=== PATIENT | female | born 1950 | race Caucasian/White ===

== ENCOUNTER 2018-06-07 08:21 | Day surgery (SDC) | payer MEDICARE, OTHER ==
[~2018-06-07] VITALS: Ht 172.7 cm; Wt 68.7 kg
[~2018-06-07 08:21] MED LIST: ATOR10; Cymbalta60 MG PO; ESTMET; Estradiol1 MG PO; Fish Oil 10001000 MG PO; LO-DOSE ASPIRIN81 MG PO; LOSARTAN POTAS100 MG PO; ROSU10TA PO; TELM20; Toprol Xl50 MG PO; Vitamin D2000 UNIT PO
== END 2018-06-07 10:29 | disposition home or self-care (01) ==
LOC: ORSCSDS 08:21
PROVIDERS: Internal Medicine Gastroenterology
PROC: 0DBP8ZX Excision of Rectum, Via Natural or Artificial Opening Endoscopic, Diagnostic (ICD-10-PCS; principal; 2018-06-07 09:45)
DX: Z12.11 Encounter for screening for malignant neoplasm of colon (principal); K62.1 Rectal polyp; K64.8 Other hemorrhoids; I10 Essential (primary) hypertension; E78.5 Hyperlipidemia, unspecified; I48.91 Unspecified atrial fibrillation; F32.9 Major depressive disorder, single episode, unspecified; Z87.891 Personal history of nicotine dependence; Z79.82 Long term (current) use of aspirin; Z79.899 Other long term (current) drug therapy
CPT/HCPCS: J1980; J2704; J7120

== ENCOUNTER → 2020-09-21 | Outpatient (CLI) | payer MEDICARE, OTHER ==
[2020-09-23 16:59] LABS: CORONAVIRUS (COVID19) CSH-NRL Positive (Negative)
== END ==
LOC: LAB SHORT 14:47 → LAB 14:47
PROVIDERS: Family Medicine
DX: R05 Cough (principal); Z20.822 Contact with and (suspected) exposure to COVID-19; Z88.0 Allergy status to penicillin; Z88.8 Allergy status to other drugs, medicaments and biological substances; Z88.5 Allergy status to narcotic agent; Z88.1 Allergy status to other antibiotic agents
CPT/HCPCS: U0003